=== PATIENT | male | born 1960 | race Caucasian/White ===

== ENCOUNTER 2018-06-19 19:21 | Emergency (ER) | payer OTHER ==
[~2018-06-19] VITALS: Ht 177.8 cm; Wt 102.7 kg
[~2018-06-19 19:21] MED LIST: ASPI-535; AUG875 PO; EZET1TAB2; IBUP-1542 PO
[2018-06-19 19:28] VITALS: Ht 177.8 cm; Wt 102.7 kg
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
[2018-06-19] MEDS ORDERED: IBUP800T48 PO (23:05)
[2018-06-19] MEDS ORDERED: CYCL10TA7 PO (23:05)
[2018-06-19 23:21] VITALS: BP 144/81; PULSE 80; RESP 18
== END 2018-06-19 23:22 | disposition home or self-care (01) ==
LOC: FTE 19:21
DX: S06.0X0A Concussion without loss of consciousness, initial encounter (principal); T14.8XXA Other injury of unspecified body region, initial encounter; I10 Essential (primary) hypertension; V49.40XA Driver injured in collision with unspecified motor vehicles in traffic accident, initial encounter; Z79.82 Long term (current) use of aspirin
CPT/HCPCS: 70450; 70486; 71046; 72125